=== PATIENT | female | born 1965 | race Caucasian/White ===

== ENCOUNTER 2016-10-04 08:21 | Day surgery (SDC) | payer OTHER ==
[~2016-10-04] VITALS: Ht 167.6 cm; Wt 135.9 kg
[~2016-10-04 08:21] MED LIST: AMLO-354 PO; ASPI81TA2 PO; ATOR40TA64 PO; CALC500T7 PO; ESCI20TA22 PO; LACT1CAP73 PO; MELA1TAB21 PO; VENL-67 PO
--- OUTSIDE RECORDS SUMMARY | 2016-10-04 08:24 | XMS REPORT | Continuity of Care Document ---
Author Author [facility] Organization [facility] Address Unknown Phone Unavailable Support Name Relationship Address Phone MARCIA ALBA MD Caregiver [facility] [address] [place] [address] Unavailable DEBRA ALDRICH DO Caregiver [facility] [address] [place] [address] TUAN SCHMID Next Of Kin [address] [place] [address] Insurance Providers Payer Name Policy Number Subscriber Name Relationship [facility] [id number] Tuan Schmid L 01 Spouse Problems Medical Problems Problem Onset Date Status Wound dehiscence Unknown Active Medications Medication Dose Route Sig Days/Qty Instructions Order Date Discontinued Date Status Escitalopram Oxalate 20 Mg PO DAILY 11/03/10 Active Amlodipine/Valsartan 1 Tab PO DAILY 11/03/10 Active Aspirin 1 Tab PO DAILY 05/30/14 Active Lactobacillus Combo No.11 DAILY 05/30/14 Active Zolpidem Tartrate 5 Mg PO BEDTIME Take 1 tablet, by mouth, 1 time a day (at BEDTIME). 05/30/14 Active Melatonin BEDTIME 05/30/14 Active Social History Social History Problem Response Recorded Date/Time Hx Substance Use No 05/30/2014 9:02am Hx Alcohol Use No 05/30/2014 9:02am Query Response Start Date Stop Date Smoking Status Never smoker Hospital Discharge Instructions No hospital discharge instructions. Plan of Care No plan of care. Functional Status Query Response Date Recorded Physical Hygiene Self May 30, 2014 9:02am Disabilities Visual May 30, 2014 9:02am Devices Used Glasses May 30, 2014 9:02am Dressing Self May 30, 2014 9:02am Ambulation Self May 30, 2014 9:02am Diet Self May 30, 2014 9:02am Mental Status Alert Oriented May 30, 2014 9:02am Disabilities Visual May 30, 2014 9:02am Devices Used Glasses May 30, 2014 9:02am Physical Hygiene Self May 30, 2014 9:02am Dressing Self May 30, 2014 9:02am Ambulation Self May 30, 2014 9:02am Diet Self May 30, 2014 9:02am Allergies, Adverse Reactions, Alerts Allergen Type Severity Reaction Status Last Updated No Known Drug Allergies Allergy Unknown Active 05/30/14 Immunizations Name Given Type Hx Influenza Vaccination Y 05/03 Historical Hx Pneumococcal Vaccination No Historical Hx Influenza Vaccination Y 05/03 Historical Vital Signs Acute Vital Signs Vital Response Date/Time Temperature (Fahrenheit) 96.5 deg F (96.8 - 99.1) Temperature (Calculated Celsius) 35.50588 degrees C (36.0 - 37.3) Pulse Rate (adult) 75 bpm (60 - 100) Respiratory Rate 16 breaths/min (10 - 20) O2 Sat by Pulse Oximetry 95 % (90 - 100) Blood Pressure 134/79 mm Hg Height 5 ft 5 in Weight 297 lb Body Mass Index 49.0 kg/m^2 Results No known relevant diagnostic tests, laboratory data and/or discharge summary. Procedures No known history of procedures. Encounters Encounter Location Date/Time Departed Emergency Room [facility] 05/30/14 8:55am Recent Diagnosis
--- OUTSIDE RECORDS SUMMARY | 2016-10-04 08:24 | XMS REPORT | Continuity of Care Document ---
Author Author [facility] Organization [facility] Address Unknown Phone Unavailable Allergies Active Description Code Type Severity Reaction Onset Reported/Identified Relationship to Patient Clinical Status Yes No Known Allergies No Known Allergies Drug Allergy Unknown N/A 07/29/2011 Medications Problems Procedures Results Encounters ACCT No. Visit Date/Time Discharge Status Pt. Type Provider Facility Loc./Unit Complaint [id number] 08/04/2015 16:52:00 2015 17:40:00 DIS Emergency Shaheen ZAMORA, Joanne Daniels [facility] [id number] 07/29/2011 10:47:00 2011 23:59:59 CLS Emergency
--- OUTSIDE RECORDS SUMMARY | 2016-10-04 08:24 | XMS REPORT | Continuity of Care Document ---
Author Author [facility] Organization [facility] Address Unknown Phone Unavailable Support Name Relationship Address Phone JAKUB GODWIN MD Caregiver [facility] [address] , [facility] [place] [address] [phone] DEBRA ALDRICH DO Caregiver [facility] [address] [place] [address] TUAN SCHMID Next Of Kin [address] [place], [place] [id number] Insurance Providers Payer Name Policy Number Subscriber Name Relationship [facility] [id number] Tuan Schmid L 01 Spouse Advance Directives Directive Response Recorded Date/Time Ordered Resuscitation Status Full Code 06/18/14 11:14am Resuscitation Documents on File No 06/17/14 3:42pm Problems Medical Problems Problem Onset Date Status Wound dehiscence Unknown Active Medications Medication Dose Route Sig Days/Qty Instructions Order Date Discontinued Date Status Escitalopram Oxalate 20 Mg PO DAILY 11/03/10 Active Aspirin 1 Tab PO DAILY 05/30/14 Active Lactobacillus Combo No.11 DAILY 05/30/14 Active Zolpidem Tartrate 5 Mg PO BEDTIME Take 1 tablet, by mouth, 1 time a day (at BEDTIME). 05/30/14 Active Melatonin 20 Mg PO BEDTIME 05/30/14 Active [Hayley Super] 2 Tab PO DAILY 06/17/14 Active Amlodipine/Valsartan/Hcthiazid 1 Tab PO BEDTIME 90 Qty 06/17/14 Active Venlafaxine HCl 1 Tab PO DAILY 30 Qty 06/17/14 Active Lactobacillus Combination No.4 1 Tab PO BEDTIME 06/17/14 Active Ubidecarenone 1 Tab PO BEDTIME 06/17/14 Active Metformin HCl 1 Tab PO TWICE A DAY 60 Qty 06/17/14 Active [place]-3 Fatty Acids 3 Tab PO DAILY 06/17/14 Active [Fat Burner] 2 Tab PO DAILY 06/17/14 Active [[id number]] 2 Tab PO DAILY 06/17/14 Active Calcium Carbonate 200 Mg PO NEEDED 06/19/14 Active [Rolaids] Unknown Dose PO NEEDED 06/19/14 Active Atorvastatin Calcium 1 Tab PO BEDTIME 06/19/14 Active Social History Social History Problem Response Recorded Date/Time Chewing Tobacco Status No 06/19/2014 6:19am Hx Substance Use No 06/19/2014 6:19am Hx Alcohol Use No 06/19/2014 6:19am Has the pt used tobacco in the last 12 months No 06/19/2014 6:19am Query Response Start Date Stop Date Smoking Status Never smoker Hospital Discharge Instructions No hospital discharge instructions. Plan of Care No plan of care. Functional Status Query Response Date Recorded Physical Hygiene Self May 30, 2014 9:02am Physical Hygiene Self May 30, 2014 9:02am Allergies, Adverse Reactions, Alerts Allergen Type Severity Reaction Status Last Updated No Known Drug Allergies Allergy Unknown Active 05/30/14 Immunizations Name Given Type Hx Influenza Vaccination Y 05/03 Historical Hx Pneumococcal Vaccination No Historical Hx Influenza Vaccination Y 05/03 Historical Vital Signs Acute Vital Signs Vital Response Date/Time Temperature (Fahrenheit) 97.9 deg F (96.8 - 99.1) Temperature (Calculated Celsius) 36.64253 degrees C (36.0 - 37.3) Temperature Source Temporal Pulse Rate (adult) 58 bpm (60 - 100) Respiratory Rate 16 breaths/min (10 - 20) O2 Sat by Pulse Oximetry 98 % (90 - 100) Oxygen Delivery Method Room Air Blood Pressure 109/58 mm Hg Blood Pressure Source Automatic Cuff Height 5 ft 5 in Weight 283 lb Body Mass Index 47.0 kg/m^2 Results No known relevant diagnostic tests, laboratory data and/or discharge summary. Procedures Procedure Status Date Provider(s) EMERGENCY DEPT VISIT completed 05/30/14 Colonoscopy with polypectomy and biopsy completed 06/19/14 JAKUB GODWIN MD Encounters Encounter Location Date/Time Departed Emergency Room [facility] 05/30/14 8:55am
[2016-10-04 08:37] VITALS: BP 121/72; PULSE 77; RESP 20; TEMP 98.1; O2SAT 95; Ht 167.6 cm; Wt 135.9 kg
[2016-10-04] MEDS: GATIFLOXACIN 0.5% EYE DROPS 2.5ml RIGHT EYE SCH ×3 (08:52→09:07)
--- NOTE | 2016-10-04 09:14 | ANESPREOP ---
Anesthesia Record Date and Time DATE: 10/04/16 TIME: 09:11 Pre-Op Diagnosis cyst on rt. eye Proposed Surgical Procedure I &D RT EYE Allergies: Coded Allergies: No Known Drug Allergies (Verified Allergy, Unknown, 05/30/14) Ht/Wt/BMI Height: 5 ' 6.00 " Weight: 135.900 kg BMI: 48.4 kg/m2 Vital Signs Date Time Temp Pulse Resp B/P Pulse Ox O2 Delivery O2 Flow Rate FiO2 10/04/16 08:37 98.1 77 20 121/72 95 Room Air Medications Inpatient Medications Current Medications Medications (Trade) Dose Ordered Sig/Rosa Maria Start Time Stop Time Status Last Admin Dose Admin Gatifloxacin 1 drop 1 drop Q5M 10/04/16 16:00 10/04/16 16:11 10/04/16 09:07 1 DROP Lactated Ringer's (Lactated Ringers) 1,000 ml @ 50 mls/hr Q20H 10/04/16 16:00 Amlodipine/Valsartan/Hcthiazid (Xuzlz-Fechk-Fsjp 10-320-25 mg) 1 Each Tablet, 1 TAB PO HS, (Reported) Last Taken: on 10/03/16 Aspirin (Aspirin) 81 Mg Tab.chew, 1 TAB PO DAILY, ( Reported) Last Taken: on 09/18/16 Atorvastatin Calcium (Atorvastatin Calcium) 40 Mg Tablet, 1 TAB PO HS, (Reported) Last Taken: on Unknown Date & Time Calcium Carbonate (Tums) 200 Mg Tab.chew , 200 MG PO PRN, (Reported) Escitalopram Oxalate (Lexapro) 20 Mg Tablet, 20 MG PO DAILY, (Reported) Last Taken: on 10/03/16 Lactobacillus Combination No.4 (Probiotic) 1 Each Capsule, 1 TAB PO HS, (Reported) Last Taken: on 10/03/16 Melatonin/Pyridoxine HCl (B6) (Melatonin 10 mg Tablet) 1 Each Tab.mphase, 1 TAB PO HS, (Reported) Last Taken: on 10/03/16 Venlafaxine HCl (Venlafaxine HCl ER) 37.5 Mg Cap.er.24h, 1 TAB PO DAILY, (Reported) Last Taken: on 10/03/16 Discontinued Medications Melatonin (Melatonin) 5 Mg Tab.rapdis, 20 MG PO HS, (Reported) Currently on Beta Daryn: No Medical/Surgical History Anesthesia PMH: Reports: *Hypertension, Cancer (SKIN CA TO LEFT FOREARM), Obesity, Reflux, Sleep Apnea (CPAP- DOES NOT USE), Denies: *Diabetes, Anesthesia Reactions (NO AIRWAY ISSUES), Arthritis, Clotting Problems, Glaucoma , Malignant Hyperthermia, Renal Disease, Thyroid Disease Smoking Status: Never smoker Has pt. smoked today?: No Use Chewing Tobacco?: No Second Hand Exposure: No Substance Use Type: does not use Substance last used: unknown Alcohol Intake: none Last Drink: unknown HX of Last Menstrual Period: 2000 Past Surgical History Orthopedic Surgeries: Yes - BILAT CTR, NERVE REPLACEMENT R ELBOW Abdominal Surgeries: Genitourinary Surgeries: Cardiac Surgeries: Endocrine Surgeries: Reproductive Surgeries: Yes - TUBAL '89,HYSTERECTOMY, Neurological Surgeries: Ear Surgeries: Nose Surgeries: Throat Surgeries: Yes - TONSILLECTOMY,SOFT PALATE Other Surgeries: Yes - EYELID Anesthesia Adverse Reactions: FOUND none Family Hx of Anesthesia Advers: none Hx of Motion Sickness: No Pertinent Findings EKG Rhythm: Sinus Rhythm Physical Exam Respiratory: Bilat breath sounds equal, Lungs clear Cardiovascular: FOUND Regular rate, rhythm, FOUND No murmur Airway Assessment Mallampati Score: I TMD: 2 Fingerbreadths Neck Extension: Fair Overall Assessment: May Be Diff Mask Vent., May Be Diff Intubation ASA: 3 Plan Anesthesia Plan: MAC Discussion Discussed risks/options/alternatives of anesthesia and questions answered. Patient consents. Nursing pain assessment noted. Attestation Statement Prior to the delivery of any anesthetic medication, I examined the patient, developed the plan, obtained the patient's consent and discussed the risk and benefits of the procedure with the patient/guardian. LOURDES SANON CRNA October 04, 2016 09:14
[2016-10-04] MEDS ORDERED: FENTANYL 100mcg/2ml INJECTION ONE (10:21)
[2016-10-04] MEDS ORDERED: MIDAZOLAM 2mg/2ml INJECTION ONE (10:21)
[2016-10-04 10:30] LABS: ANION GAP 13 MEQ/L (5-15); BUN/CREATININE RATIO 21 RATIO (6-26); CALCIUM 9.2 MG/DL (8.4-10.2); CHLORIDE 105 MEQ/L (98-107); CO2 - CARBON DIOXIDE 29 MEQ/L (22-30); CREATININE 0.8 MG/DL (0.7-1.2); GLOMERULAR FILTRATION RATE 75; GLUCOSE 115 MG/DL (65-110); POTASSIUM 3.9 MEQ/L (3.6-5); SODIUM 147 MEQ/L (134-144)
[2016-10-04] MEDS ORDERED: SALINE FLUSH 10ml SYRINGE ONE (10:36)
[2016-10-04 11:47] VITALS: BP 84/51; PULSE 73; RESP 14; TEMP 98.4; O2SAT 96
[2016-10-04] MEDS ORDERED: ACETAMINOPHEN 500 MG TABLET PO PRN (12:00)
[2016-10-04 12:03] VITALS: BP 89/48; PULSE 70; RESP 15; O2SAT 95
[2016-10-04 12:18] VITALS: BP 110/56; PULSE 62; RESP 17; O2SAT 97
--- NOTE | 2016-10-04 12:46 | ANESPO ---
Post-Op Note Date 10/04/16 Time: 12:45 Status Pt Participated in Evaluation: Pt participated in person Vital Signs Date Time Temp Pulse Resp B/P Pulse Ox O2 Delivery O2 Flow Rate FiO2 10/04/16 12:18 62 17 110/56 97 Room Air 10/04/16 11:47 98.4 Respiratory Function: Airway patent, Regular respirations Cardiovascular Function: Regular pulse Mental Status: Alert/oriented Pain Level Intensity: 0 Hydration: Taking po fluids Complications during Recovery None apparent Post-Anesthesia Notes [email or web address] Follow-Up Instructions Instructions Per Surgeon Additional Information none LOURDES SANON CRNA October 04, 2016 12:46
[2016-10-04] MEDS ORDERED: GENTAMICIN 0.3% BOTH EYES ONE (15:24)
[2016-10-04] MEDS ORDERED: EPINEPHRINE 1mg/ml Pres.Free vl IO ONE (15:24)
[2016-10-04] MEDS ORDERED: TETRACAINE 0.5% EYE DROPS 4ml BOTTLE OP ONE (15:24)
[2016-10-04] MEDS ORDERED: VANCOMYCIN 500 MG INJECTION IV ONE (15:24)
[2016-10-04] MEDS ORDERED: EYE BOTH EYES ONE (15:24)
[2016-10-04] MEDS ORDERED: LIDOCAINE 1% (10mg/ml) 30ml SDV IJ ONE (15:24)
[2016-10-04] MEDS ORDERED: LIDOCAINE 1% (10mg/ml) 2ml SDV INJ ONE (16:00)
[2016-10-04] MEDS ORDERED: LR 1,000 ML IV SCH (16:00)
[2016-10-04] MEDS ORDERED: LIDOCAINE 3.5% EYE GEL PF 1ml OP ONE (16:00)
--- NOTE | 2016-10-05 08:53 | OPNOTEF ---
DATE OF OPERATION 10/04/2016 PREOPERATIVE AND POSTOPERATIVE DIAGNOSES Subconjunctival lesion, right eye, probable lipoma. PROCEDURE Excision of lesion on right eye. SURGEON Charanjit Jensen M.D. DESCRIPTION OF PROCEDURE The patient was given Gatifloxacin drops and topical Xylocaine gel and brought to the operating room where the area about the right eye was prepped and draped in the usual sterile fashion with Betadine and Betadine eyedrops into the right eye. The procedure was done under the lighted microscope. A lid speculum was placed into the right eye and removed at the end of the procedure. Additional topical anesthetic drops of tetracaine were placed on her eye. Using a Elayne scissors, the conjunctiva was incised and the lesion was undermined and it was noted to be yellowish and thick in nature. It was not a fluid filled cyst but appeared to be more like a lipoma. The lipoma was excised and was noted to be temporally and extended downward as well. It was not excised in one piece, but in several, as it was a large lipoma. Electrocautery was used to help maintain hemostasis and topical epinephrine with lidocaine was instilled into the area in order to help with hemostasis and anesthesia. The area examined and believed that all the lipomatous material was removed. It began to extend inferotemporally; this part was excised as well. The conjunctiva was then closed with six interrupted 9-0 Vicryl sutures. The area was examined and noted to be flat and free of this lipomatous material. Mild pressure was applied and it was noted that there was no more oozing of blood at the end of the procedure. Topical ophthalmic ointment was instilled into the eye and a shield taped over the eye, completing the procedure of an excision of a subconjunctival lesion, probably a lipoma, from the right eye in the temporal and inferotemporal area. Blood loss was less than 3 mL. The patient left the operating room in good condition. There were no complications. ASIM
== END 2016-10-04 12:28 | disposition home or self-care (01) ==
LOC: NSC 08:21
PROVIDERS: ATTEND Ophthalmology
DX: H11.89 Other specified disorders of conjunctiva (principal); H10.401 Unspecified chronic conjunctivitis, right eye; G47.30 Sleep apnea, unspecified; K21.9 Gastro-esophageal reflux disease without esophagitis; F41.9 Anxiety disorder, unspecified; J45.909 Unspecified asthma, uncomplicated; F32.9 Major depressive disorder, single episode, unspecified; I10 Essential (primary) hypertension; E78.5 Hyperlipidemia, unspecified; K58.9 Irritable bowel syndrome, unspecified; Z79.82 Long term (current) use of aspirin; Z79.899 Other long term (current) drug therapy; Z85.828 Personal history of other malignant neoplasm of skin
CPT/HCPCS: 36415; 68115; 80048; A9270; J0171; J2250; J3010; J3370